=== PATIENT | male | born 1970 | race Caucasian/White ===

== ENCOUNTER → 2018-01-25 | Outpatient (CLI) | payer OTHER ==
[2018-01-25 10:23] LABS: ANION GAP 10 mmol/L (7-16); BUN 16 mg/dL (7-18); CALCIUM 8.8 mg/dL (8.5-10.1); CHLORIDE 104 mmol/L (98-107); CHOLESTEROL 217 mg/dL (<200); CO2 26 mmol/L (21-32); CREATININE 1.2 mg/dL (0.6-1.3); GLUCOSE 132 mg/dL (70-99); HDL CHOLESTEROL 34 mg/dL (>40); LDL CHOLESTEROL 127 mg/dL (<100); SODIUM 140 mmol/L (136-145); TC:HDL 6.4 Ratio (Not establshd); TRIGLYCERIDE 282 mg/dL (<150); VLDL 56 mg/dL (<40)
[2018-01-25 10:26] LABS: SERUM ASSESSMENT Clear
== END ==
LOC: M.LAB 09:40
PROVIDERS: Internal Medicine Cardiovascular Disease
DX: I11.9 Hypertensive heart disease without heart failure (principal); E78.00 Pure hypercholesterolemia, unspecified

== ENCOUNTER → 2019-04-03 | Outpatient (CLI) | payer OTHER | LOC: M.CT 08:00 | DX: Z13.6 Encounter for screening for cardiovascular disorders (principal) ==